=== PATIENT | male | born 1935 | race Caucasian/White ===

== ENCOUNTER 2020-11-09 03:40 | Inpatient (IN) | payer MEDICARE ==
[2020-11-09] MEDS ORDERED: Labetalol HCl 100 MG/20 ML VIAL ONE (04:28)
[2020-11-09] MEDS ORDERED: ADMIXTURE FEE IV SCH (05:00)
[2020-11-09] MEDS ORDERED: HUMAN PROTHROMBIN COMPLX IV SCH (05:00)
[2020-11-09] MEDS ORDERED: manNITOL 20% 500 ML ONE (05:42)
[2020-11-09] MEDS ORDERED: Ondansetron PF 4 MG/2 ML Vial IVP PRN (07:10)
[2020-11-09] MEDS ORDERED: Acetaminophen 325 MG TAB PO PRN (07:10)
[2020-11-09] MEDS ORDERED: Labetalol HCl 100 MG/20 ML VIAL SLOW IVP PRN (07:10)
[2020-11-09] MEDS ORDERED: Norepinephrine 8 MG/0.9% NS 250 ML IVPB PRN (07:10)
[2020-11-09 07:33] LABS: SARS-CoV-2 NAA Rapid Test Not Detected (NotDetected)
[2020-11-09] MEDS ORDERED: Dextrose 50% Abboject 50 ML SYRINGE SLOW IVP PRN (08:06)
[2020-11-09] MEDS ORDERED: Dextrose 5% in Water 1,000 ML IV PRN (08:06)
[2020-11-09] MEDS ORDERED: HumaLOG 300 UNITS/3 ML VIAL SC PRN (08:06)
[2020-11-09] MEDS ORDERED: Famotidine/PF 20 mg/2ml Vial ONE (09:36)
[2020-11-09] MEDS ORDERED: Metoprolol Tartrate 25 MG TAB ONE (09:36)
[2020-11-09 09:40] LABS: #Basophils 0.1 thou/uL (0.0-0.2); #Eosinphils 0.1 thou/uL (0.0-0.7); #Lymphocytes 1.4 thou/uL (1.20-3.40); #Monocytes 0.9 thou/uL (0.11-0.59); #Neutrophils 6.1 thou/uL (1.40-6.50); %Basophils 0.6 % (0.0-1.0); %Eosinophils 1.3 % (0.0-10.0); %Lymphocytes 16.6 % (21.0-51.0); %Monocytes 10.3 % (0.0-10.0); %Neutrophils 71.2 % (42.0-75.0); Hemoglobin 12.7 g/dL (14.0-18.0); Mean Corpuscular HGB CONC 34.2 g/dL (32.0-36.0); Mean Corpuscular Volume 93.8 fL (78.0-98.0); Mean Platelet Volume 7.5 fL (7.4-10.4); Platelet Count 225 thou/uL (130-400); RBC Distribution Width 11.1 % (11.5-14.5); Red Blood Cell (RBC) Count 3.97 mill/uL (4.70-6.10); White Blood Cell (WBC) Count 8.6 thou/uL (4.8-10.8)
[2020-11-09] MEDS: Famotidine/PF 20 mg/2ml Vial SLOW IVP SCH (09:46)
[2020-11-09 10:02] LABS: Anion Gap 13 mmol/L (10-20); BUN (Urea Nitrogen) 19 mg/dL (8.4-25.7); Calc. Creatinine Clearance 0 mL/min (70-130); Calcium 8.7 mg/dL (7.8-10.44); Carbon Dioxide 25 mmol/L (23-31); Chloride 101 mmol/L (98-107); Glucose 164 mg/dL (83-110); Sodium 135 mmol/L (136-145)
[2020-11-09] MEDS: Metoprolol Tartrate 25 MG TAB PO SCH ×2 (10:14→22:37)
[2020-11-09] MEDS: Sodium Chloride 0.9% 1,000 ML IV SCH ×2 (17:41→17:43)
[2020-11-10] MEDS ORDERED: Acetaminophen 650 MG Suppository PR PRN (03:07)
[2020-11-10] MEDS: Sodium Chloride 0.9% 1,000 ML IV SCH ×2 (04:40→16:12)
[2020-11-10] MEDS: hydrALAZINE 20 MG/ML VIAL SLOW IVP PRN ×2 (04:42→15:04)
[2020-11-10] MEDS ORDERED: hydrALAZINE 20 MG/ML VIAL SLOW IVP SCH ×2 (06:15→09:15)
[2020-11-10] MEDS ORDERED: FLU VACC QS2020-21(65YR UP)/PF 240 MCG/0.7 ML SYRINGE IM ONE (09:00)
[2020-11-10] MEDS: Famotidine/PF 20 mg/2ml Vial SLOW IVP SCH (09:03)
[2020-11-10] MEDS: Metoprolol Tartrate 25 MG TAB PO SCH (09:04)
[2020-11-10 12:56] VITALS: BMI 21.2
[2020-11-10] MEDS: Morphine 2 MG/ML VIAL SLOW IVP PRN (15:07)
[2020-11-10 17:03] LABS: #Eosinphils 0.1 thou/uL (0.0-0.7); #Lymphocytes 1.3 thou/uL (1.20-3.40); #Monocytes 1.3 thou/uL (0.11-0.59); #Neutrophils 9.8 thou/uL (1.40-6.50); %Basophils 0.4 % (0.0-1.0); %Eosinophils 0.6 % (0.0-10.0); %Lymphocytes 10.4 % (21.0-51.0); %Monocytes 10.2 % (0.0-10.0); %Neutrophils 78.4 % (42.0-75.0); Hemoglobin 14.3 g/dL (14.0-18.0); Mean Corpuscular HGB CONC 34.1 g/dL (32.0-36.0); Mean Corpuscular Volume 93.8 fL (78.0-98.0); Mean Platelet Volume 7.4 fL (7.4-10.4); Platelet Count 225 thou/uL (130-400); RBC Distribution Width 11.1 % (11.5-14.5); Red Blood Cell (RBC) Count 4.48 mill/uL (4.70-6.10); White Blood Cell (WBC) Count 12.5 thou/uL (4.8-10.8)
[2020-11-10 17:24] LABS: Anion Gap 18 mmol/L (10-20); BUN (Urea Nitrogen) 10 mg/dL (8.4-25.7); Calc. Creatinine Clearance 59 mL/min (70-130); Calcium 8.5 mg/dL (7.8-10.44); Carbon Dioxide 20 mmol/L (23-31); Chloride 103 mmol/L (98-107); Glucose 147 mg/dL (83-110); Potassium 3.8 mmol/L (3.5-5.1); Sodium 137 mmol/L (136-145)
[2020-11-11] MEDS: hydrALAZINE 20 MG/ML VIAL SLOW IVP PRN ×2 (00:31→20:56)
[2020-11-11] MEDS: Metoprolol Tartrate 25 MG TAB PO SCH ×3 (00:58→21:39)
[2020-11-11] MEDS: Morphine 2 MG/ML VIAL SLOW IVP PRN ×3 (01:25→23:00)
[2020-11-11] MEDS: Labetalol HCl 100 MG/20 ML VIAL SLOW IVP PRN ×3 (01:27→21:50)
[2020-11-11] MEDS ORDERED: hydrALAZINE 20 MG/ML VIAL SLOW IVP PRN (02:41)
[2020-11-11 05:08] LABS: #Monocytes 0.9 thou/uL (0.11-0.59); #Neutrophils 11.3 thou/uL (1.40-6.50); %Basophils 0.1 % (0.0-1.0); %Eosinophils 0.3 % (0.0-10.0); %Lymphocytes 7.5 % (21.0-51.0); %Monocytes 6.5 % (0.0-10.0); %Neutrophils 85.6 % (42.0-75.0); Hemoglobin 13.1 g/dL (14.0-18.0); Mean Corpuscular HGB CONC 33.8 g/dL (32.0-36.0); Mean Corpuscular Hemoglobin 31.4 pg (27.0-31.0); Mean Corpuscular Volume 93.2 fL (78.0-98.0); Mean Platelet Volume 7.3 fL (7.4-10.4); Platelet Count 242 thou/uL (130-400); RBC Distribution Width 11.2 % (11.5-14.5); Red Blood Cell (RBC) Count 4.16 mill/uL (4.70-6.10); White Blood Cell (WBC) Count 13.2 thou/uL (4.8-10.8)
[2020-11-11] MEDS: Sodium Chloride 0.9% 1,000 ML IV SCH ×5 (05:10→17:54)
[2020-11-11 05:28] LABS: Anion Gap 19 mmol/L (10-20); BUN (Urea Nitrogen) 14 mg/dL (8.4-25.7); Calc. Creatinine Clearance 53 mL/min (70-130); Calcium 8.2 mg/dL (7.8-10.44); Carbon Dioxide 14 mmol/L (23-31); Chloride 106 mmol/L (98-107); Glucose 188 mg/dL (83-110); Potassium 3.8 mmol/L (3.5-5.1); Sodium 135 mmol/L (136-145)
[2020-11-11] MEDS: Famotidine/PF 20 mg/2ml Vial SLOW IVP SCH (10:59)
[2020-11-11] MEDS: Lorazepam 2 MG/ML VIAL SLOW IVP PRN (17:42)
[2020-11-12 05:00] LABS: #Eosinphils 0.1 thou/uL (0.0-0.7); #Monocytes 0.9 thou/uL (0.11-0.59); #Neutrophils 9.6 thou/uL (1.40-6.50); %Basophils 0.2 % (0.0-1.0); %Eosinophils 0.5 % (0.0-10.0); %Lymphocytes 8.4 % (21.0-51.0); %Monocytes 7.9 % (0.0-10.0); Hemoglobin 12.6 g/dL (14.0-18.0); Mean Corpuscular Hemoglobin 32.9 pg (27.0-31.0); Mean Corpuscular Volume 94.1 fL (78.0-98.0); Mean Platelet Volume 7.6 fL (7.4-10.4); Platelet Count 235 thou/uL (130-400); RBC Distribution Width 11.2 % (11.5-14.5); Red Blood Cell (RBC) Count 3.82 mill/uL (4.70-6.10); White Blood Cell (WBC) Count 11.6 thou/uL (4.8-10.8)
[2020-11-12 05:21] LABS: Anion Gap 17 mmol/L (10-20); BUN (Urea Nitrogen) 17 mg/dL (8.4-25.7); Calc. Creatinine Clearance 53 mL/min (70-130); Calcium 8.3 mg/dL (7.8-10.44); Carbon Dioxide 15 mmol/L (23-31); Chloride 111 mmol/L (98-107); Glucose 180 mg/dL (83-110); Potassium 3.6 mmol/L (3.5-5.1); Sodium 139 mmol/L (136-145)
[2020-11-12] MEDS: Sodium Chloride 0.9% 1,000 ML IV SCH (06:07)
[2020-11-12] MEDS: Morphine 2 MG/ML VIAL SLOW IVP PRN ×2 (07:00→10:21)
[2020-11-12] MEDS: Lorazepam 2 MG/ML VIAL SLOW IVP PRN (10:29)
[2020-11-12] MEDS: Famotidine/PF 20 mg/2ml Vial SLOW IVP SCH (10:29)
[2020-11-12] MEDS: Metoprolol Tartrate 25 MG TAB PO SCH (10:29)
[2020-11-12] MEDS: hydrALAZINE 20 MG/ML VIAL SLOW IVP PRN (12:27)
[2020-11-12] MEDS ORDERED: Morphine 2 MG/ML VIAL SLOW IVP PRN (13:42)
[2020-11-12] MEDS ORDERED: Scopolamine 1.5 mg/72 hour Patch TOP SCH (14:00)
[2020-11-12 16:04] VITALS: BP 173/72; TEMP 99.1
== END 2020-11-12 17:03 | disposition hospice, inpatient (51) | DRG 64 ==
LOC: ERS 03:40 → ERHOLD 07:05 → 2SE 15:33
PROVIDERS: ADMIT Internal Medicine; ATTEND Family Medicine
DX: I62.01 Nontraumatic acute subdural hemorrhage (principal); G93.6 Cerebral edema; G93.5 Compression of brain; Z66 Do not resuscitate; Z51.5 Encounter for palliative care; Z20.822 Contact with and (suspected) exposure to COVID-19; I63.9 Cerebral infarction, unspecified; G93.49 Other encephalopathy; R29.719 NIHSS score 19; F03.90 Unspecified dementia, unspecified severity, without behavioral disturbance, psychotic disturbance, mood disturbance, and anxiety; I10 Essential (primary) hypertension; E03.9 Hypothyroidism, unspecified; I48.91 Unspecified atrial fibrillation; N40.0 Benign prostatic hyperplasia without lower urinary tract symptoms; I62.03 Nontraumatic chronic subdural hemorrhage; R29.810 Facial weakness; Z79.01 Long term (current) use of anticoagulants; Z28.21 Immunization not carried out because of patient refusal; Z79.899 Other long term (current) drug therapy; Z79.890 Hormone replacement therapy; Z79.84 Long term (current) use of oral hypoglycemic drugs
CPT/HCPCS: 0240U; 36415; 36416; 51702; 70450; 71045; 80048; 83880; 85025; 95712; 95819; 95957; 96374; 96375; C9132; J0360; J2060; J2270; J7799; S0028

== ENCOUNTER 2020-11-12 17:06 | Inpatient (IN) | payer OTHER ==
[2020-11-12] MEDS ORDERED: Scopolamine 1.5 mg/72 hour Patch TOP PRN (17:45)
[2020-11-12] MEDS ORDERED: Hyoscyamine Sulfate SL 0.125 mg Tablet SL PRN (17:45)
[2020-11-12] MEDS ORDERED: Ondansetron PF 4 MG/2 ML Vial IVP PRN (17:45)
[2020-11-12] MEDS: Morphine 2 MG/ML VIAL SLOW IVP SCH ×4 (18:35→23:59)
[2020-11-12 20:23] VITALS: BMI 25.5
[2020-11-12] MEDS: Lorazepam 2 MG/ML VIAL SLOW IVP SCH ×2 (20:24→21:51)
[2020-11-13] MEDS: Lorazepam 2 MG/ML VIAL SLOW IVP SCH ×3 (01:48→08:48)
[2020-11-13] MEDS: Morphine 2 MG/ML VIAL SLOW IVP SCH ×6 (01:55→10:55)
[2020-11-13 08:13] VITALS: BP 140/66; TEMP 98.2
== END 2020-11-13 11:25 | disposition expired | DRG 951 ==
LOC: 2SE 17:06
PROVIDERS: ADMIT Internal Medicine; ATTEND Family Medicine
DX: Z51.5 Encounter for palliative care (principal); I62.01 Nontraumatic acute subdural hemorrhage; G93.6 Cerebral edema; G93.5 Compression of brain; I63.9 Cerebral infarction, unspecified; Z66 Do not resuscitate; F03.90 Unspecified dementia, unspecified severity, without behavioral disturbance, psychotic disturbance, mood disturbance, and anxiety; I10 Essential (primary) hypertension; I48.91 Unspecified atrial fibrillation; E11.9 Type 2 diabetes mellitus without complications; E03.9 Hypothyroidism, unspecified; N40.0 Benign prostatic hyperplasia without lower urinary tract symptoms; Z79.01 Long term (current) use of anticoagulants; Z79.84 Long term (current) use of oral hypoglycemic drugs
CPT/HCPCS: J2060; J2270